=== PATIENT | female | born 1965 | race Caucasian/White ===

== ENCOUNTER 2017-07-03 17:03 | Inpatient (IN) | payer MEDICARE ==
[~2017-07-03] VITALS: Ht 170.2 cm; Wt 119.8 kg
--- NOTE | 2017-07-03 17:36 | PHYS DOC ---
Adult General Chief Complaint Chief Complaint: DIZZY/LIGHT HEADED HPI HPI Patient is a 52 year old F who presents with lightheaded, dizziness, weakness. Patient states she just flew in from [facility] yesterday for a class at at [place] and woke up this morning with lightheadedness, dizziness and generalized weakness. Patient denies any cardiac history. Patient states she has no past medical history except for 3 months ago had a questionable seizure in which she is getting worked up for. Patient has no history of DVTs or PEs. Patient denies any fevers. Patient denies any nausea/vomiting/diarrhea. Patient denies any dysuria. Patient has no other complaints. Review of Systems Review of Systems GEN: Generalized weakness HEENT: Denies blurred vision, sore throat CV: Denies chest pain RESP: Denies shortness of air, cough GI: Denies n/v/d NEURO: Lightheadedness and dizziness MSK: Denies weakness, joint pain/swelling All other systems were reviewed and found to be within normal limits, except as documented in this note. Current Medications Current Medications Current Medications Medications (Trade) Dose Ordered Sig/Radha Start Time Stop Time Status Last Admin Dose Admin Sodium Chloride 1,000 ml @ 1,000 mls/hr 1X ONCE 07/03/17 17:30 07/03/17 18:29 UNV Physical Exam Physical Exam GEN.: No apparent distress. Alert and oriented. HEENT: Head is normocephalic, atraumatic NECK: Supple. LUNGS: CTAB. HEART: RRR, S1, S2 present. Peripheral pulses intact ABDOMEN: Soft, nontender. Positive bowel sounds. EXTREMITIES: Without any cyanosis. NEUROLOGIC: Normal speech, normal tone PSYCHIATRIC: Normal affect, normal mood. SKIN: No ulcerations EKG EKG 1753: EKG shows normal sinus rhythm rate of 94 no STEMI[] Radiology/Procedures Radiology/Procedures [] Course & Med Decision Making Course & Med Decision Making Pertinent Labs and Imaging studies reviewed. (See chart for details) ED course: Patient was seen and examined emergency room CBC, CMP, troponin, UA, EKG, chest x-ray, CT scan of the head,CTA of the chest were ordered Patient was 88% on room air with a heart rate of 105 therefore is placed on 2 L nasal cannula explained to the patient that with her recent travels I have a high suspicion for possible PE. 1800: Patient will be signed out to Dr. Miller who will follow-up on lab work and final disposition. [] PATIENT: SAMARA GRACE ACCOUNT: [id number] : 1965 LOCATION: ER AGE: 52 SEX: F EXAM STATUS: REG ER ORD. PHYSICIAN: DANGELO GAONA DO REASON: SOA, hypoxia, lightheaded PROCEDURE: CT HEAD WO CONTRAST CT head INDICATION: Lightheadedness. TECHNIQUE: CT head without IV contrast. COMPARISON: None FINDINGS: No pathologic extra-axial or intra-axial fluid collection. No midline shift. The ventricles and basal cisterns are within normal limits. No acute intracranial bleed. There is fullness noted in the foramen magnum. No focal loss of cadet-white differentiation. Visualized orbits within normal limits. No calvarial lesions. Visualized paranasal sinuses and mastoid air cells are clear. IMPRESSION: 1. No acute intracranial findings. 2. Fullness in the foramen magnum may represent Chiari malformation. CT angiogram chest INDICATION: Shortness of breath, hypoxia. TECHNIQUE: CT angiogram of the chest with 75 mL of Omnipaque 300 with multiplanar MIP reformats. COMPARISON: None FINDINGS: Diagnostic quality PE study. No central, segmental or subsegmental filling defects in the pulmonary arteries. No enlarged axillary, mediastinal or hilar lymph nodes. Heart is normal in size. No pericardial or pleural effusion. Diffuse central bilateral confluent patchy and groundglass opacities noted. The visualized sections through the liver, spleen, pancreas, adrenals and kidneys are within normal limits. No suspicious bony lesion. IMPRESSION: 1. No PE. 2. Diffuse bilateral airspace and interstitial lung disease. Differential diagnoses include pneumonia or pulmonary edema. Follow-up CT chest recommended after medical therapy to ensure resolution. Electronically signed by: Fermín Chester DO (07/03/2017 7:09 PM) [facility] DICTATED AND SIGNED BY: FERMÍN CHESTER DO DATE: 07/03/171858 CC: NON,STAFF; DANGELO GAONA DO; DAFNE MILLER DO ~ Patient signed out to dc at 1800 shift change. CTA pending PATIENT: SAMARA RGACE ACCOUNT: [id number] : 1965 LOCATION: ER AGE: 52 SEX: F EXAM STATUS: REG ER ORD. PHYSICIAN: DANGELO GAONA DO REASON: SOA, hypoxia, lightheaded, weakness PROCEDURE: CT ANGIOGRAPHY CHEST CT head INDICATION: Lightheadedness. TECHNIQUE: CT head without IV contrast. COMPARISON: None FINDINGS: No pathologic extra-axial or intra-axial fluid collection. No midline shift. The ventricles and basal cisterns are within normal limits. No acute intracranial bleed. There is fullness noted in the foramen magnum. No focal loss of cadet-white differentiation. Visualized orbits within normal limits. No calvarial lesions. Visualized paranasal sinuses and mastoid air cells are clear. IMPRESSION: 1. No acute intracranial findings. 2. Fullness in the foramen magnum may represent Chiari malformation. CT angiogram chest INDICATION: Shortness of breath, hypoxia. TECHNIQUE: CT angiogram of the chest with 75 mL of Omnipaque 300 with multiplanar MIP reformats. COMPARISON: None FINDINGS: Diagnostic quality PE study. No central, segmental or subsegmental filling defects in the pulmonary arteries. No enlarged axillary, mediastinal or hilar lymph nodes. Heart is normal in size. No pericardial or pleural effusion. Diffuse central bilateral confluent patchy and groundglass opacities noted. The visualized sections through the liver, spleen, pancreas, adrenals and kidneys are within normal limits. No suspicious bony lesion. IMPRESSION: 1. No PE. 2. Diffuse bilateral airspace and interstitial lung disease. Differential diagnoses include pneumonia or pulmonary edema. Follow-up CT chest recommended after medical therapy to ensure resolution. Electronically signed by: Fermín Chester DO (07/03/2017 7:09 PM) [facility] DICTATED AND SIGNED BY: FERMÍN CHESTER DO DATE: 07/03/17 1859 CC: NON,STAFF; DANGELO GAONA DO; DAFNE MILLER DO ~ The patient remains dependent on supplemental O2 to maintain sats greater than 90%. I discussed the patient with Dr. Vitale who accepts ICU admission inpatient status for respiratory support further evaluation and treatment. Patient is agreeable to admission. Impressions: Respiratory distress Pneumonia Dragon Disclaimer Dragon Disclaimer This electronic medical record was generated, in whole or in part, using a voice recognition dictation system. Departure Departure: Impression: Primary Impression: Hypoxia Additional Impression: Dizziness Referrals: NON,STAFF (PCP) Problem Qualifiers DANGELO GAONA DO Jul 03, 2017 17:36 DAFNE MILLER DO Jul 03, 2017 19:20
[2017-07-03] MEDS ORDERED: IOHEXOL 300 MG/ML 75 ML VIAL. IV ONE (18:10)
[2017-07-03] MEDS ORDERED: IV NORMAL SALINE 1,000ML 1,000 ML IV ONE (18:10)
[2017-07-03 18:24] LABS: BASO # 0.1 x10^3/uL (0.0-0.2); BASO % 1 % (0-3); EOS # 0.1 x10^3/uL (0.0-0.7); EOS % 1 % (0-3); HEMATOCRIT 41.3 % (36.0-47.0); HEMOGLOBIN 13.3 g/dL (12.0-15.5); LYMPH # 1.9 x10^3/uL (1.0-4.8); LYMPH % 10 % (24-48); MEAN CORPUSCULAR HEMOGLOBIN 26 pg (25-35); MEAN CORPUSCULAR HGB CONC 32 g/dL (31-37); MEAN CORPUSCULAR VOLUME 82 fL (79-100); MONO # 0.7 x10^3/uL (0.0-1.1); MONO % 4 % (0-9); NEUT # 16.9 x10^3uL (1.8-7.7); NEUT % 86 % (31-73); PLATELET COUNT 339 x10^3/uL (140-400); RED BLOOD COUNT 5.04 x10^6/uL (3.50-5.40); RED CELL DISTRIBUTION WIDTH 15.1 % (11.5-14.5); WHITE BLOOD COUNT 19.8 x10^3/uL (4.0-11.0)
[2017-07-03 18:32] LABS: ALBUMIN 3.8 g/dL (3.4-5.0); ALBUMIN/GLOBULIN RATIO 0.8 (1.0-1.7); CREATININE 0.9 mg/dL (0.6-1.0); GFR 65.2; TOTAL BILIRUBIN 0.6 mg/dL (0.2-1.0); TOTAL PROTEIN 8.8 g/dL (6.4-8.2)
[2017-07-03 19:00] LABS: CLARITY,URINE HAZY; COLOR,URINE YELLOW; GLUCOSE,URINE NEG (NEG)
[2017-07-03 19:01] LABS: BACTERIA,URINE FEW /HPF (0-FEW); BILIRUBIN,URINE NEG (NEG); NITRITE,URINE NEG (NEG); RBC,URINE OCC /HPF (0-2); UROBILINOGEN,URINE 0.2 mg/dL (0.2 mg/dL); WBC,URINE OCC /HPF (0-4)
--- NOTE | 2017-07-03 19:12 | RAD ---
CT head INDICATION: Lightheadedness. TECHNIQUE: CT head without IV contrast. COMPARISON: None FINDINGS: No pathologic extra-axial or intra-axial fluid collection. No midline shift. The ventricles and basal cisterns are within normal limits. No acute intracranial bleed. There is fullness noted in the foramen magnum. No focal loss of cadet-white differentiation. Visualized orbits within normal limits. No calvarial lesions. Visualized paranasal sinuses and mastoid air cells are clear. IMPRESSION: 1. No acute intracranial findings. 2. Fullness in the foramen magnum may represent Chiari malformation. CT angiogram chest INDICATION: Shortness of breath, hypoxia. TECHNIQUE: CT angiogram of the chest with 75 mL of Omnipaque 300 with multiplanar MIP reformats. COMPARISON: None FINDINGS: Diagnostic quality PE study. No central, segmental or subsegmental filling defects in the pulmonary arteries. No enlarged axillary, mediastinal or hilar lymph nodes. Heart is normal in size. No pericardial or pleural effusion. Diffuse central bilateral confluent patchy and groundglass opacities noted. The visualized sections through the liver, spleen, pancreas, adrenals and kidneys are within normal limits. No suspicious bony lesion. IMPRESSION: 1. No PE. 2. Diffuse bilateral airspace and interstitial lung disease. Differential diagnoses include pneumonia or pulmonary edema. Follow-up CT chest recommended after medical therapy to ensure resolution. Electronically signed by: Fermín Chester DO (07/03/2017 7:09 PM) [facility]
[2017-07-03] MEDS ORDERED: IPRATRPIUM/ALBUTEROL 0.5/2.5MG 3 ML NEBU. NEB ONE (19:30)
[2017-07-03] MEDS ORDERED: IV NORMAL SALINE 50ML 50 ML ONE (19:31)
[2017-07-03] MEDS ORDERED: cefTRIAXone SODIUM 1 GM VIAL IV ONE (19:31)
[2017-07-03] MEDS ORDERED: ACETAMINOPHEN 325 MG TABLET PO PRN (19:45)
[2017-07-03] MEDS ORDERED: ONDANSETRON PF 4 MG/2 ML VIAL. IV PRN (19:45)
[2017-07-03] MEDS: IPRATRPIUM/ALBUTEROL 0.5/2.5MG 3 ML NEBU. NEB SCH (20:00)
[2017-07-03 20:33] LABS: % BASOS 1 % (0-3); % LYMPHS 15 % (24-48); % MONOS 2 % (0-10); % SEGS 82 % (35-66)
[2017-07-03 20:36] LABS: PLT ESTIMATE ADEQUATE (ADEQUATE)
[2017-07-03 22:13] VITALS: BP 131/65
[2017-07-03] MEDS: IV NORMAL SALINE 1,000ML 1,000 ML IV SCH (22:19)
[2017-07-04] MEDS: IV NORMAL SALINE 1,000ML 1,000 ML IV SCH ×2 (00:45→02:47)
[2017-07-04] MEDS: AZITHROMYCIN 500 MG in IV NORMAL SALINE 250ML 250 ML IV SCH ×2 (02:47→20:40)
[2017-07-04] MEDS ORDERED: CHOL100013 PO (03:40)
[2017-07-04] MEDS ORDERED: SUMA50TA3 PO (03:40)
[2017-07-04] MEDS ORDERED: MECL25TA3 PO (03:40)
[2017-07-04] MEDS ORDERED: METO25TA2 PO (03:40)
[2017-07-04] MEDS ORDERED: LEVE750T13 PO (03:40)
[2017-07-04] MEDS ORDERED: LISI-338 PO (03:40)
[2017-07-04] MEDS ORDERED: NAPR220T70 PO (03:40)
--- NOTE | 2017-07-04 04:58 | EKG ---
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
[2017-07-04] MEDS: IPRATRPIUM/ALBUTEROL 0.5/2.5MG 3 ML NEBU. NEB SCH ×3 (05:51→16:40)
[2017-07-04 06:08] VITALS: BP 141/78
[2017-07-04] MEDS ORDERED: SUMAtriptan SUCCINATE 50 MG TABLET PO PRN (06:30)
[2017-07-04] MEDS ORDERED: NAPROXEN 250 MG TABLET PO PRN (06:45)
[2017-07-04] MEDS ORDERED: methylPREDNISolone SOD SUCC PF 125 MG/2 ML VIAL. IV ONE (07:00)
[2017-07-04] MEDS: CHOLECALCIFEROL (VITAMIN D3) 1,000 UNIT TABLET PO SCH (07:53)
[2017-07-04] MEDS: LACTOBACILLUS RHAMNOSUS GG 1 CAPSULE. PO SCH ×2 (07:53→20:39)
[2017-07-04] MEDS: METOPROLOL SUCC 24HR ER 25 MG TAB.ER.24H. PO SCH (07:53)
[2017-07-04] MEDS: MECLIZINE 12.5 MG TABLET. PO SCH (07:53)
[2017-07-04 08:01] LABS: ALBUMIN/GLOBULIN RATIO 0.7 (1.0-1.7); BASO # 0.1 x10^3/uL (0.0-0.2); BASO % 1 % (0-3); CALCIUM 8.3 mg/dL (8.5-10.1); CREATININE 0.8 mg/dL (0.6-1.0); EOS # 0.7 x10^3/uL (0.0-0.7); EOS % 6 % (0-3); GFR 74.7; HEMATOCRIT 35.9 % (36.0-47.0); HEMOGLOBIN 11.1 g/dL (12.0-15.5); LYMPH # 1.9 x10^3/uL (1.0-4.8); LYMPH % 15 % (24-48); MAGNESIUM 2.3 mg/dL (1.8-2.4); MEAN CORPUSCULAR HEMOGLOBIN 26 pg (25-35); MEAN CORPUSCULAR HGB CONC 31 g/dL (31-37); MEAN CORPUSCULAR VOLUME 82 fL (79-100); MONO # 0.6 x10^3/uL (0.0-1.1); MONO % 5 % (0-9); NEUT # 9.3 x10^3uL (1.8-7.7); NEUT % 74 % (31-73); PLATELET COUNT 307 x10^3/uL (140-400); POTASSIUM 3.6 mmol/L (3.5-5.1); RED BLOOD COUNT 4.37 x10^6/uL (3.50-5.40); RED CELL DISTRIBUTION WIDTH 14.9 % (11.5-14.5); TOTAL BILIRUBIN 0.6 mg/dL (0.2-1.0); TOTAL PROTEIN 7.1 g/dL (6.4-8.2); WHITE BLOOD COUNT 12.6 x10^3/uL (4.0-11.0)
--- NOTE | 2017-07-04 08:36 | RAD ---
Portable chest, 07/03/2017: History: Shortness of breath, lightheadedness The heart is within normal limits in size. There are moderate bilateral central pulmonary infiltrates with obscuration of the underlying pulmonary vascularity. There is no evidence of pleural fluid. Mild scattered degenerative changes are evident in the spine. IMPRESSION: Moderate bilateral central pulmonary infiltrates suggesting pulmonary edema versus pneumonia.
[2017-07-04] MEDS: levETIRAcetam 250 MG TABLET PO SCH (08:49)
--- NOTE | 2017-07-04 09:59 | HP ---
ADMIT DATE: 07/03/2017 REASON FOR ADMISSION: This is a 52-year-old female, who has been attending a class at [place]. She flew in 2 days ago and at that time stated that she had had a cold for about 1-1/2 weeks. She got up yesterday, felt weak and lightheaded and fatigued. She went to her class, but became progressively weak and lightheaded with headache and presented to the Emergency Room, found to be hypoxic with pneumonia. PAST MEDICAL HISTORY: Migraine headaches, borderline hypertension, vitamin D deficiency, and seizure in February with normal MRI. ALLERGIES: No known allergies. MEDICATIONS: Reviewed and available on the OCT. FAMILY HISTORY: Positive for hypertension. Sister with glaucoma. HABITS: Nonsmoker, occasional alcohol, no drugs. PAST SURGICAL HISTORY: Tonsillectomy. REVIEW OF SYSTEMS: She has been losing weight. Denies any sore throat. No issues with her bladder or bowels, no blood disorder issues, but positive as per HPI, some weakness and lightheadedness and fatigue. OBJECTIVE: VITAL SIGNS: Blood pressure 141/78, pulse 93, pulse ox this morning was 98% on 2 liters, but also 90% on 2 liters. Height 67 inches, weight 260 pounds. HEENT: TMs were dull bilaterally, but without erythema or bulging drums. Nose was patent. Throat was clear. She has a large tongue relative to posterior pharynx. NECK: Supple, without adenopathy. LUNGS: With scattered wheezes and crackles. CARDIOVASCULAR: Regular rhythm and rate with 1/6 systolic murmur. ABDOMEN: Soft, nontender. EXTREMITIES: Without edema. NEUROLOGIC: She is alert and oriented. Neurologically no tremors. LABORATORY DATA: Initial white blood cell count 19.8 with left shift, today it is 12.6. Hemoglobin 11.1, hematocrit 35.9. Chemistry; her troponins are negative x 2. BNP is negative. Chemistry profile; lactic acid is 1.7 and 1.2. IMAGING: Chest CT shows diffuse bilateral airspace interstitial lung disease, which may be pneumonia or pulmonary edema. ASSESSMENT: 1. Community-acquired pneumonia. 2. Upper respiratory infection. 3. Acute hypoxic respiratory failure secondary to pneumonia. 4. Questionable interstitial lung disease. Will need a CT in about 6 months. She then also sepsis criteria met. 5. Hypertension. 6. History of migraine headaches, not addressed, present on admission. PLAN: IV antibiotics, breathing treatments, oxygen, DVT prophylaxis. We will also give her 1 dose of methylprednisolone to see if that helps. SILVER CONTRERAS DO DR: LAVONNE/darren JOB#: [id number] / [id number]
[2017-07-04 10:29] VITALS: BP 148/80
[2017-07-04 15:43] VITALS: BP 125/64
[2017-07-04] MEDS: ALBUTEROL SULFATE 2.5 MG/3 ML NEBU. NEB PRN (20:22)
[2017-07-04 20:23] VITALS: BP 148/79
[2017-07-04] MEDS: LISINOPRIL 5 MG TABLET. PO SCH (20:39)
[2017-07-04 22:46] VITALS: BP 162/76
[2017-07-05 05:26] VITALS: BP 114/76
[2017-07-05] MEDS: ALBUTEROL SULFATE 2.5 MG/3 ML NEBU. NEB PRN (05:49)
[2017-07-05] MEDS: IPRATRPIUM/ALBUTEROL 0.5/2.5MG 3 ML NEBU. NEB SCH ×4 (08:00→21:05)
[2017-07-05 08:18] LABS: BASO # 0.1 x10^3/uL (0.0-0.2); BASO % 0 % (0-3); EOS # 0.1 x10^3/uL (0.0-0.7); EOS % 1 % (0-3); HEMATOCRIT 34.3 % (36.0-47.0); HEMOGLOBIN 11.1 g/dL (12.0-15.5); LYMPH # 2.5 x10^3/uL (1.0-4.8); LYMPH % 15 % (24-48); MEAN CORPUSCULAR HEMOGLOBIN 26 pg (25-35); MEAN CORPUSCULAR HGB CONC 32 g/dL (31-37); MEAN CORPUSCULAR VOLUME 81 fL (79-100); MONO # 0.7 x10^3/uL (0.0-1.1); MONO % 4 % (0-9); NEUT # 13.3 x10^3uL (1.8-7.7); NEUT % 80 % (31-73); PLATELET COUNT 301 x10^3/uL (140-400); RED BLOOD COUNT 4.22 x10^6/uL (3.50-5.40); RED CELL DISTRIBUTION WIDTH 14.9 % (11.5-14.5); WHITE BLOOD COUNT 16.6 x10^3/uL (4.0-11.0)
[2017-07-05 08:31] LABS: ALBUMIN 2.9 g/dL (3.4-5.0); ALBUMIN/GLOBULIN RATIO 0.7 (1.0-1.7); CALCIUM 8.6 mg/dL (8.5-10.1); CREATININE 0.8 mg/dL (0.6-1.0); GFR 74.7; MAGNESIUM 2.2 mg/dL (1.8-2.4); POTASSIUM 3.5 mmol/L (3.5-5.1); TOTAL BILIRUBIN 0.6 mg/dL (0.2-1.0)
[2017-07-05 09:07] LABS: % BASOS 1 % (0-3); % EOS 2 % (0-5); % LYMPHS 21 % (24-48); % MONOS 1 % (0-10); % SEGS 75 % (35-66); PLT ESTIMATE ADEQUATE (ADEQUATE)
[2017-07-05 09:08] LABS: TOXIC GRANULATION SLIGHT
--- NOTE | 2017-07-05 09:27 | RAD ---
Chest radiograph Two Views 07/05/2017 Clinical indication: Pneumonia Comparison: Chest radiograph 07/03/2017 Findings: No significant change in bilateral upper lobe and right lung base patchy airspace opacities. No pleural effusion or pneumothorax. There is multilevel thoracic spondylosis. Impression: Unchanged bilateral patchy airspace opacities which may represent multifocal infection or edema.
[2017-07-05] MEDS: levETIRAcetam 250 MG TABLET PO SCH (09:30)
[2017-07-05] MEDS: MECLIZINE 12.5 MG TABLET. PO SCH (09:30)
[2017-07-05] MEDS: LACTOBACILLUS RHAMNOSUS GG 1 CAPSULE. PO SCH ×2 (09:30→21:53)
[2017-07-05] MEDS: CHOLECALCIFEROL (VITAMIN D3) 1,000 UNIT TABLET PO SCH (09:30)
[2017-07-05] MEDS: METOPROLOL SUCC 24HR ER 25 MG TAB.ER.24H. PO SCH (09:32)
[2017-07-05 10:47] VITALS: BP 151/80
[2017-07-05] MEDS ORDERED: POTASSIUM CHLORIDE 20 MEQ TABLET.ER. PO ONE (14:15)
[2017-07-05 14:57] VITALS: BP 151/82
--- NOTE | 2017-07-05 16:40 | CARD ---
APPROVED REPORT EXAM: Two-dimensional and M-mode echocardiogram with Doppler and color Doppler. INDICATION Dyspnea DX PNEUMONIA RESPIRATORY DISTRESS 2D DIMENSIONS Left Atrium(2D)3.9 (1.6-4.0cm)IVSd1.2 (0.7-1.1cm) Aortic Root(2D)2.7 (2.0-3.7cm)LVDd4.2 (3.9-5.9cm) LVOT Diameter2.0 (1.8-2.4cm)PWd1.2 (0.7-1.1cm) LVDs3.0 (2.5-4.0cm)FS (%) 28.2 % SV43.9 mlLVEF(%)54.9 (>50%) Aortic Valve AoV Peak Paulo.168.9cm/sAoV VTI35.3cm AO Peak GR.11.4mmHgLVOT Peak Paulo.120.6cm/s LVOT VTI 27.18cmAO Mean GR.6mmHg ITA (VMAX)2.70qa8BPP (VTI)2.33cm2 Mitral Valve MV E Mkysmjca03.6cm/sMV DECEL WYSN188gd MV A Jpcdfbvi95.5cm/sE/A Ratio1.0 Tricuspid Valve TR P. Rfzxghjr227zm/sRAP YIRXAWVL3gbDa TR Peak Gr.75vzViCEVV97daLq LEFT VENTRICLE The left ventricle is normal size. There is mild concentric left ventricular hypertrophy. The Ejectio n Fraction is 55-60%. There is normal LV segmental wall motion. Tissue Doppler imaging reveals abnorm al left ventricular diastolic dysfunction. RIGHT VENTRICLE The right ventricle is normal size. The right ventricular systolic function is normal. ATRIA The left atrium is mildly dilated. The right atrium size is normal. The interatrial septum is intact with no evidence for an atrial septal defect or patent foramen ovale as noted on 2-D or Doppler imagi ng. AORTIC VALVE The aortic valve is mildly thickened but opens well. Doppler and Color Flow revealed no significant a ortic regurgitation. There is no significant aortic valvular stenosis. MITRAL VALVE The mitral valve is mildly calcified but opens well. There is no evidence of mitral valve prolapse. T here is no mitral valve stenosis. Doppler and Color Flow revealed no mitral valve regurgitation noted . TRICUSPID VALVE The tricuspid valve is normal in structure. Doppler and Color Flow revealed mild tricuspid regurgitat ion. The PA pressure was estimated at 25 mmHg. There is no tricuspid valve prolapse or vegetation. Th ere is no tricuspid valve stenosis. PULMONIC VALVE Doppler and Color Flow revealed no pulmonic valvular regurgitation. There is no pulmonic valvular adrian nosis. GREAT VESSELS The aortic root is normal in size. The ascending aorta is normal in size. The IVC is normal in size a nd collapses >50% with inspiration. PERICARDIAL EFFUSION There is no pleural effusion. There is no evidence of significant pericardial effusion. Critical Notification Critical Value: No <Conclusion> The Ejection Fraction is 55-60%. There is normal LV segmental wall motion. There is mild concentric left ventricular hypertrophy. Doppler and Color Flow revealed mild tricuspid regurgitation. The PA pressure was estimated at 25 mmH g.
[2017-07-05 18:36] VITALS: BP 126/71
[2017-07-05] MEDS: LISINOPRIL 5 MG TABLET. PO SCH (21:54)
[2017-07-05] MEDS: AZITHROMYCIN 500 MG in IV NORMAL SALINE 250ML 250 ML IV SCH (22:56)
[2017-07-05 23:22] VITALS: BP 146/63
[2017-07-06 05:17] VITALS: BP 148/83
[2017-07-06] MEDS: IPRATRPIUM/ALBUTEROL 0.5/2.5MG 3 ML NEBU. NEB SCH ×3 (05:49→15:50)
--- NOTE | 2017-07-06 07:12 | PN ---
DATE: 07/05/2017 CURRENT PROBLEMS: 1. Community-acquired pneumonia. 2. Upper respiratory infection. 3. Acute hypoxic respiratory failure. 4. Abnormal CT. 5. Sepsis. 6. Hypertension. 7. History of migraine headaches. SUBJECTIVE: Continues on IV antibiotics, breathing treatments and oxygen. She is fine and her sats are high in the high 90s at rest on 2 liters, but she desaturates without it on exertion and she actually is in the high 90s without the oxygen sitting on the bed, but when she went to the bathroom and back, she denatures to 88. She herself feels a little bit better. OBJECTIVE: VITAL SIGNS: Blood pressure 151/80, pulse 78, respirations 20, pulse ox 98% on 1-1/2 liters, temperature 97.9. SKIN: Warm and dry. HEENT: Tongue was moist. NECK: Supple. LUNGS: Clear without wheezes or rhonchi. CARDIOVASCULAR: Regular rhythm and rate. ABDOMEN: Soft, nontender. EXTREMITIES: Without edema. LABORATORY DATA: White count gone up a little bit, most likely from Solu-Medrol 16.6. Chemistry: Albumin of 2.9, potassium of 3.5. Repeat chest x-ray today still shows unchanged bilateral opacities. PLAN: Check for legionella and explained in detail that she may have to be discharged on oxygen and in the interim, we will continue with the antibiotics now and then also for the mild protein-calorie malnutrition, we will start her on some Boost. SILVER CONTRERAS DO DR: LAVONNE/darren JOB#: [id number] / [id number]
[2017-07-06] MEDS: MECLIZINE 12.5 MG TABLET. PO SCH (08:51)
[2017-07-06] MEDS: CHOLECALCIFEROL (VITAMIN D3) 1,000 UNIT TABLET PO SCH (08:51)
[2017-07-06] MEDS: levETIRAcetam 250 MG TABLET PO SCH (08:51)
[2017-07-06] MEDS: METOPROLOL SUCC 24HR ER 25 MG TAB.ER.24H. PO SCH (08:51)
[2017-07-06] MEDS: LACTOBACILLUS RHAMNOSUS GG 1 CAPSULE. PO SCH (08:51)
[2017-07-06] MEDS ORDERED: DOXY100C2 PO (10:30)
[2017-07-06 11:02] VITALS: BP 133/85
[2017-07-06 13:01] LABS: BASO # 0.1 x10^3/uL (0.0-0.2); BASO % 1 % (0-3); EOS # 1.3 x10^3/uL (0.0-0.7); EOS % 13 % (0-3); LYMPH # 2.4 x10^3/uL (1.0-4.8); LYMPH % 25 % (24-48); MEAN CORPUSCULAR HEMOGLOBIN 26 pg (25-35); MEAN CORPUSCULAR HGB CONC 33 g/dL (31-37); MEAN CORPUSCULAR VOLUME 81 fL (79-100); MONO # 0.4 x10^3/uL (0.0-1.1); MONO % 4 % (0-9); NEUT # 5.3 x10^3uL (1.8-7.7); NEUT % 56 % (31-73); PLATELET COUNT 303 x10^3/uL (140-400); RED BLOOD COUNT 4.56 x10^6/uL (3.50-5.40); WHITE BLOOD COUNT 9.5 x10^3/uL (4.0-11.0)
[2017-07-06 13:11] LABS: ALBUMIN 2.9 g/dL (3.4-5.0); ALBUMIN/GLOBULIN RATIO 0.7 (1.0-1.7); CALCIUM 8.6 mg/dL (8.5-10.1); CREATININE 0.7 mg/dL (0.6-1.0); GFR 87.2; TOTAL BILIRUBIN 0.8 mg/dL (0.2-1.0)
--- NOTE | 2017-07-06 16:41 | DS ---
DATE OF DISCHARGE: 07/06/2017 DISCHARGE DIAGNOSES: 1. Community-acquired pneumonia. 2. Upper respiratory infection. 3. Acute hypoxic respiratory failure, has resolved. 4. Questionable interstitial lung disease. 5. Sepsis. 6. Hypertension. 7. History of migraine headaches. 8. Moderate protein-calorie malnutrition. HOSPITAL COURSE: This is a 52-year-old female who was admitted with community-acquired pneumonia. She was also hypoxic. She required 1 to 2 liters of oxygen prior to the day of discharge. On the day of discharge, she had a 6-minute walk and showed that she could ambulate without requiring oxygen. She received IV antibiotics and breathing treatments and 1 dose of Solu-Medrol. PHYSICAL EXAMINATION: VITAL SIGNS: On the day of discharge, her temperature was 98.2, pulse 75, respirations 20, blood pressure 133/85, and pulse ox was 97% on room air. GENERAL: She is sitting up comfortably. LUNGS: Clear in all buitrago. CARDIOVASCULAR: Regular rhythm and rate. EXTREMITIES: Without edema. PLAN: Discharge back to home. Copies of CAT scans given to her. She has an appointment with a lungs specialist on Monday. I recommended that she take the next week off to continue to recover and we will send her home on a 7-day course of doxycycline. SILVER CONTRERAS DO DR: LAVONNE/darren JOB#: [id number] / [id number]
== END 2017-07-06 16:30 | disposition home or self-care (01) | DRG 871 ==
LOC: ER 17:03 → 1 SOUTH 19:50
PROVIDERS: ADMIT Family Medicine; ATTEND Family Medicine
DX: A41.9 Sepsis, unspecified organism (principal); J18.9 Pneumonia, unspecified organism; J96.01 Acute respiratory failure with hypoxia; E44.0 Moderate protein-calorie malnutrition; I10 Essential (primary) hypertension; G43.909 Migraine, unspecified, not intractable, without status migrainosus; J06.9 Acute upper respiratory infection, unspecified; Z82.49 Family history of ischemic heart disease and other diseases of the circulatory system
CPT/HCPCS: 36415; 70450; 71010; 71020; 71275; 80053; 81001; 83605; 83735; 83880; 84484; 85007; 85025; 87040; 87449; 93005; 93306; 94620; 94640; 96361; 96365; J0456; J0696; J2930; J7050; J7613; J7620; J8597; Q9967; 99285-25; J7030